=== PATIENT | female | born 1955 | race Caucasian/White ===

== ENCOUNTER 2016-08-17 08:54 | Day surgery (SDC) | payer OTHER ==
[~2016-08-17] VITALS: Ht 162.6 cm; Wt 74.2 kg
[~2016-08-17 08:54] MED LIST: BENA40TA54 PO; CALC600T5 PO; FERR-55 PO; GABA300S PO; GEMF600T PO; LORA-441 PO; LORA10TA PO; METF500T4 PO; METO-448 PO; NEOM10SO OT; PARO-37 PO; RANI75TA13 PO; SIMV20TA2 PO; TYL500 PO; ZOLP10TA PO
[2016-08-17 09:43] VITALS: Ht 162.6 cm; Wt 74.2 kg
[2016-08-17] MEDS ORDERED: PRAZ1CAP3 PO (10:10)
[2016-08-17] MEDS ORDERED: DOCU100T PO (10:10)
[2016-08-17] MEDS ORDERED: QUET1TAB PO (10:10)
[2016-08-17] MEDS ORDERED: GLIM4TAB PO (10:10)
[2016-08-17] MEDS ORDERED: CANA300T PO (10:10)
[2016-08-17] MEDS ORDERED: OMEP20CA16 PO (10:10)
[2016-08-17] MEDS ORDERED: ATEN-51 PO (10:10)
[2016-08-17] MEDS ORDERED: BISA5TAB6 PO (10:10)
[2016-08-17] MEDS ORDERED: SITA100T8 PO (10:10)
[2016-08-17] MEDS ORDERED: PROPOFOL 40 ML ONE (10:15)
[2016-08-17] MEDS ORDERED: LIDOCAINE 2% (SDV) 5 ML INJ ONE (10:15)
[2016-08-17 10:30] VITALS: BP 163/78; PULSE 79; RESP 20
[2016-08-17 11:44] VITALS: BP 181/88; PULSE 69; RESP 20
--- NOTE | 2016-08-17 11:58 | GILP ---
DATE OF PROCEDURE: NAME OF PROCEDURES: 1. Esophagogastroduodenoscopy and biopsy. 2. Colonoscopy and biopsy. SURGEON: Lisa Mak MD PREOPERATIVE DIAGNOSES: 1. Abdominal pain. 2. Chronic heartburn. 3. Change in the bowel habit. 4. Rectal bleeding. 5. History of colon polyps. POSTOPERATIVE DIAGNOSES: 1. Gastritis with erosions. 2. Gastric mucosal biopsies were taken for Helicobacter pylori test. 3. Colonoscopy all the way to the cecum. 4. Flat right colon polyp was removed using the biopsy forceps. 5. Diverticulosis of the colon. 6. Internal hemorrhoids. INDICATION FOR THE PROCEDURE: Ms. Opal Laguerre is a 60-year-old female patient who had upper abdom inal pain and chronic heartburn not responding to therapy. She also noticed a change in the bowel h abit with rectal bleeding. She has a history of colon polyps. The patient was scheduled for endosco py and colonoscopy for further evaluation. The procedures and possible complications were well explained to the patient. She understood and co nsented to the procedures. DESCRIPTION OF PROCEDURE: Under the influence of anesthesia, the gastroscope was carefully introduc ed into the esophagus and under direct vision it was advanced to the stomach and through the pylorus , into the duodenal bulb and descending duodenum. FINDINGS: ESOPHAGUS: The mucosa was normal. STOMACH: The patient had gastritis with erosions. Gastric mucosal biopsies were taken for H. pylor i test. DUODENUM: Normal. The colonoscope was carefully introduced in the rectum and under direct vision it was advanced all t he way to the cecum. FINDINGS: The patient had a flat right colon polyp and it was removed in pieces using the biopsy fo rceps. The patient was noted to have diverticulosis of the colon and internal hemorrhoids. She tolerated the procedures very well and there was no complication from the procedures. At the en d of the procedures, she was awake with stable vital signs and she was discharged home to the care o f her family. IMPRESSION: Please see postoperative diagnoses. PLAN: 1. Continue omeprazole. 2. Add Zantac 300 mg p.o. at bedtime. 3. Anusol-HC 2.5% cream at bedtime. 4. Await histopathology report. 5. After reviewing the histopathology reports the timing for the next colonoscopy will be decided. Dictated By: LISA MILNER/DION Conf#: [id number] [facility]#: [id number]
== END 2016-08-17 11:17 | disposition home or self-care (01) ==
LOC: GIL 08:54
PROVIDERS: ATTEND Internal Medicine Gastroenterology
DX: R19.4 Change in bowel habit (principal); K63.5 Polyp of colon; K29.60 Other gastritis without bleeding; K57.90 Diverticulosis of intestine, part unspecified, without perforation or abscess without bleeding; K64.8 Other hemorrhoids; E11.9 Type 2 diabetes mellitus without complications; I10 Essential (primary) hypertension; E78.5 Hyperlipidemia, unspecified; E66.9 Obesity, unspecified; Z68.28 Body mass index [BMI] 28.0-28.9, adult
CPT/HCPCS: 43239; 45380; 82962; 87081; 88305; Z7610

== ENCOUNTER 2018-06-18 11:30 | Day surgery (SDC) | payer OTHER ==
[~2018-06-18] VITALS: Ht 162.6 cm; Wt 73.1 kg
[~2018-06-18 11:30] MED LIST changes: +ATEN-51 PO; -BENA40TA54 PO; +BISA5TAB6 PO; +CANA300T PO; +DOCU100T PO; -GEMF600T PO; +GLIM4TAB PO; +METF-849 PO; -METF500T4 PO; -METO-448 PO; -NEOM10SO OT; +OMEP20CA16 PO; -PARO-37 PO; +PRAZ1CAP3 PO; +QUET1TAB PO; -RANI75TA13 PO; +SITA100T11 PO; -ZOLP10TA PO
[2018-06-18] MEDS ORDERED: VENTOLIN (12:35)
[2018-06-18] MEDS ORDERED: ARIPIPRAZOLE (12:35)
[2018-06-18] MEDS ORDERED: FLUCINONIDE (12:35)
[2018-06-18] MEDS ORDERED: [UNRECOGNIZED DRUG - OTHER] (12:35)
[2018-06-18] MEDS ORDERED: VITAMIN D2 (12:35)
[2018-06-18] MEDS ORDERED: PRAVASTATIN (12:35)
[2018-06-18] MEDS ORDERED: METOPROLOL (12:35)
[2018-06-18] MEDS ORDERED: [UNRECOGNIZED DRUG - OTHER] (12:35)
[2018-06-18] MEDS ORDERED: TRAMADOL (12:35)
[2018-06-18] MEDS ORDERED: BELSOMRA (12:35)
[2018-06-18] MEDS ORDERED: HYDROCORTISONE CREAM (12:35)
[2018-06-18] MEDS ORDERED: OXYBUTYNIN (12:35)
[2018-06-18] MEDS ORDERED: RANITIDINE (12:35)
[2018-06-18] MEDS ORDERED: LINZESS (12:35)
[2018-06-18] MEDS ORDERED: MECLIZINE (12:35)
[2018-06-18] MEDS ORDERED: ANASTROZOLE (12:35)
[2018-06-18] MEDS ORDERED: JARDIANCE (12:35)
[2018-06-18 12:57] VITALS: Ht 162.6 cm; Wt 73.1 kg
[2018-06-18 13:02] VITALS: BP 105/52; PULSE 71; RESP 16
[2018-06-18] MEDS ORDERED: PROPOFOL 40 ML ONE (13:29)
--- NOTE | 2018-06-18 13:32 | PREAC ---
Date/Time of Note Date/Time of Note DATE: 06/18/18 TIME: 13:30 Anesthesia Eval and Record Evaluation Time Pre-Procedure Interview DATE: 06/18/18 TIME: 13:30 Age 62 Sex female NPO: 8 hrs Preoperative diagnosis Reflux, Esophagitis, Anemia, Planned procedure EGD, Colonoscopy Past Medical History Past Medical History: Includes Cardio: HTN Endo: Diabetes, Other (Hx of Breast Cancer) Pulm: Asthma GI: Obesity Surgery & Anesthesia Issues No known issue Meds Anticoagulation: No Beta Shayne within 24 hr: No Reason Beta Shayne not given: Pt. not on B-Shayne Reported Medications [Linzess] No Conflict Check 06/18/18 [Belsomra] No Conflict Check 06/18/18 [Ventolin] No Conflict Check 06/18/18 [Mentox] No Conflict Check 06/18/18 [Flucinonide] No Conflict Check 06/18/18 [Hydrocortisone Cream] No Conflict Check 06/18/18 [Anastrozole] No Conflict Check 06/18/18 [Oyst Sheel Calc Vitd] No Conflict Check 06/18/18 [Vitamin D2] No Conflict Check 06/18/18 [Aripiprazole] No Conflict Check 06/18/18 [Tramadol] No Conflict Check 06/18/18 [Metoprolol] No Conflict Check 06/18/18 [Oxybutynin] No Conflict Check 06/18/18 [Ranitidine] No Conflict Check 06/18/18 [Meclizine] No Conflict Check 06/18/18 [Pravastatin] No Conflict Check 06/18/18 [Jardiance] No Conflict Check 06/18/18 Omeprazole* (Omeprazole*) 20 Mg Capsule.dr, 20 MG PO BID, #60 CAP 08/17/16 Glimepiride* (Glimepiride*) 4 Mg Tablet, 4 MG PO WITH BREAKFAST, TAB 08/17/16 Sitagliptin* (Januvia*) 100 Mg Tablet, 100 MG PO DAILY, #30 TAB 08/17/16 Loratadine (Loratadine) 10 Mg Tablet, 10 MG PO DAILY 11/13/12 Gabapentin (GABAPENTIN) 300 Mg/6 Ml Solution, 300 MG PO DAILY 11/13/12 Metformin* (Glucophage*) 500 Mg Tab, 500 MG PO BID 11/13/12 Discontinued Reported Medications Bisacodyl* (Bisacodyl*) 5 Mg Tablet.dr, 5 MG PO DAILY, TAB 08/17/16 Atenolol* (Atenolol*) 25 Mg Tablet, 25 MG PO DAILY, #30 TAB 08/17/16 Docusate Sodium* (Dok*) 100 Mg Tablet, 100 MG PO BID, #60 CAP 08/17/16 Prazosin Hcl* (Prazosin Hcl*) 1 Mg Capsule, 1 MG PO BID, CAP 08/17/16 Quetiapine Fumarate (Seroquel Xr) 1 Each [id number], 1 EACH PO 08/17/16 Canagliflozin (Invokana) 300 Mg Tablet, 300 MG PO DAILY, TAB 08/17/16 Acetaminophen (Acetaminophen) 500 Mg Tab, 500 MG PO Q4 PRN 11/13/12 Ferrous Sulfate* (Ferrous Sulfate*) 325 Mg Tablet, 325 MG PO TID 11/13/12 Calcium Carbonate (CALCIUM) 600 Mg Tablet, 600 MG PO DAILY 11/13/12 Simvastatin (Simvastatin) 20 Mg Tablet, 20 MG PO DAILY 11/13/12 Lorazepam* (Ativan*) 0.5 Mg Tablet, 0.5 MG PO DAILY PRN 11/13/12 Meds reviewed: Yes Allergies Coded Allergies: No Known Allergy (Unverified , 11/13/12) Allergies Reviewed: Yes Labs/Studies Labs Reviewed: Reviewed by anesthesiologist test: N/A Studies: ECG (n/a), CXR (n/a) Pre-procedure Exam Last vitals Vital Signs Date Temp Pulse Resp B/P (MAP) Pulse Ox O2 O2 Flow FiO2 Time Delivery Rate 06/18/18 98.6 71 16 105/52 94 Room Air 13:02 (69) Airway: Adequate mouth opening, Adequate thyromental dist Mallampati: Mallampati II Teeth: Normal Lung: Normal Heart: Normal ASA Physical Status ASA physical status: 3 Emergency: None Planned Anesthetic General/MAC: MAC Planned Pain Management Parenteral pain med Pre-operative Attestations Prior to commencing anesthesia and surgery, the patient was re-evaluated, there was verification of: *The patient's identity *The results of appropriate recent lab work and preoperative vital signs *The above evaluation not changing prior to induction *Anesthetic plan, risk benefits, alternative and complications discussed with patient/family; questions answered; patient/family understands, accepts and wishes to proceed. HEBERT KNUTSON MD Jun 18, 2018 13:32
[2018-06-18] MEDS ORDERED: PROPOFOL 80 ML ONE (14:24)
--- NOTE | 2018-06-18 14:24 | PAC ---
Date/Time of Note Date/Time of Note DATE: 06/18/18 TIME: 14:24 Post-Anesthesia Notes Post-Anesthesia Note Last documented vital signs Vital Signs Date Temp Pulse Resp B/P (MAP) Pulse Ox O2 O2 Flow FiO2 Time Delivery Rate 06/18/18 98.6 71 16 105/52 94 Room Air 14:32 (69) Activity: WNL Respiratory function: WNL Cardiovascular function: WNL Mental status: Baseline Pain reasonably controlled: Yes Hydration appropriate: Yes Nausea/Vomiting absent: Yes HEBERT KNUTSON MD Jun 18, 2018 14:24
[2018-06-18 15:24] VITALS: BP 94/53; RESP 15
== END 2018-06-18 15:36 | disposition home or self-care (01) ==
LOC: GIL 11:30
PROVIDERS: ATTEND Internal Medicine Gastroenterology
DX: R19.4 Change in bowel habit (principal); D12.6 Benign neoplasm of colon, unspecified; K57.30 Diverticulosis of large intestine without perforation or abscess without bleeding; K64.8 Other hemorrhoids; K21.9 Gastro-esophageal reflux disease without esophagitis; I10 Essential (primary) hypertension; E11.9 Type 2 diabetes mellitus without complications; J45.909 Unspecified asthma, uncomplicated
CPT/HCPCS: 43239; 45380; 82962; 88305; Z7610